=== PATIENT | female | born 1980 | race Caucasian/White ===

== ENCOUNTER → 2019-03-21 | Outpatient (CLI) | payer BC | END | disposition home or self-care (01) | LOC: LAB SHORT 15:26 → LAB 15:26 | DX: N39.0 Urinary tract infection, site not specified (principal) | CPT/HCPCS: 87086 ==

== ENCOUNTER → 2020-12-09 | Outpatient (CLI) | payer BC | LOC: LAB SHORT 15:26 → LAB 15:26 | DX: N39.0 Urinary tract infection, site not specified (principal) | CPT/HCPCS: 87086 ==

== ENCOUNTER → 2022-10-26 | Outpatient (CLI) | payer BC | LOC: LAB 08:09 → LAB SHORT 08:09 | DX: N39.0 Urinary tract infection, site not specified (principal) | CPT/HCPCS: 87077; 87086; 87186 ==

== ENCOUNTER → 2024-04-30 | Outpatient (CLI) | payer BC ==
[2024-05-08 11:45] LABS: HPV HIGH RISK BY TMA Not Detected; HPV SOURCE Cervical
== END | disposition home or self-care (01) ==
LOC: LAB 10:16 → LAB SHORT 10:16
PROVIDERS: Registered Nurse
DX: Z12.4 Encounter for screening for malignant neoplasm of cervix (principal)
CPT/HCPCS: 87624; G0123

== ENCOUNTER → 2024-12-19 | Outpatient (CLI) | payer BC | END | disposition home or self-care (01) | LOC: LAB 13:56 → LAB SHORT 13:56 | DX: R10.A2 Flank pain, left side (principal) | CPT/HCPCS: 87086 ==